=== PATIENT | male | born 1985 | race Caucasian/White ===

== ENCOUNTER 2021-12-19 15:43 | Emergency (ER) | payer MEDICAID ==
[~2021-12-19] VITALS: Ht 175.3 cm; Wt 101.0 kg
[2021-12-19 16:33] VITALS: BP 157/88
== END 2021-12-19 18:27 | disposition left against medical advice (07) ==
LOC: ER 15:43
DX: Z53.21 Procedure and treatment not carried out due to patient leaving prior to being seen by health care provider (principal)